=== PATIENT | female | born 1940 | race Caucasian/White ===

== ENCOUNTER → 2017-04-24 | Outpatient (CLI) | payer MEDICARE ==
--- NOTE | 2017-04-25 18:21 | Diagnostic Imaging Report ---
Bilateral screening mammogram 2D views with tomosynthesis. The current study was also evaluated with a Computer Aided Detection (CAD) system. INDICATION: Screening. No current complaints stated on the questionnaire. COMPARISON: None. FINDINGS: The breasts are composed of scattered fibroglandular densities. There are occasional benign-appearing calcifications. No mass, architectural distortion, or suspicious cluster of calcifications seen. IMPRESSION: No mammographic evidence of malignancy. ACR BI-RADS Category 2: Benign findings. Result letter will be mailed to the patient. Note: At least 10% of breast cancer is not imaged by mammography. Dictated by: Dictated on workstation # [id number]
== END ==
LOC: RAD 10:28
PROVIDERS: ATTEND Family Medicine
DX: Z12.31 Encounter for screening mammogram for malignant neoplasm of breast (principal)
CPT/HCPCS: 77067

== ENCOUNTER 2019-05-06 00:15 | Emergency (ER) | payer MEDICARE ==
[~2019-05-06] VITALS: Ht 167 cm; Wt 87.0 kg
[2019-05-06] MEDS ORDERED: NS IV 1000 ML 1,000 ML IV ONE (00:28)
[2019-05-06] MEDS ORDERED: NS IV 1000 ML 1,000 ML IV SCH ×2 (00:28→02:30)
[2019-05-06] MEDS ORDERED: ACETAMINOPHEN 500 MG TAB (TYLENOL) PO ONE (00:30)
[2019-05-06] MEDS ORDERED: RT-ALBUTEROL/IPRATROPIUM 3 ML (DUONEB) VIAL INH ONE (00:30)
--- NOTE | 2019-05-06 00:31 | ED General ---
General Chief Complaint: Rect Problems Stated Complaint: VOMITING Source of Information: Patient, EMS Exam Limitations: Other (delirium) History of Present Illness Date Seen by Provider: May 06, 2019 Time Seen by Provider: 00:14 Initial Comments Patient presents by EMS from home with chief complaint of not feeling well, fever, nausea vomiting. She received 4 mg Zofran. EMS said they saw blood in the stool in the toilet. Patient denies any pain. Patient denies shortness of breath but was 86% on room air so they put her on 4 L by nasal cannula which brought her up to 95%. Her son and [id number] arrive shortly after her and said that she was fine earlier in the day but in the afternoon she started to sick. She has a history of hypothyroidism, hyperlipidemia, hypertension on triamterene and uses metformin for diabetes. Allergies and Home Medications Allergies Coded Allergies: nitroglycerin (Verified Allergy, Unknown, 05/06/19) Patient Home Medication List Home Medication List Reviewed: Yes Review of Systems Review of Systems Constitutional: see HPI (limited review of systems secondary to delirium), chills, fever Past Lwdumfr-Fbdajp-Sgkval Hx Patient Social History Alcohol Use: Denies Use Recreational Drug Use: No Smoking Status: Never a Smoker Recent Foreign Travel: No Contact w/Someone Who Travel: No Physical Exam-Suspected Sepsis Physical Exam Vital Signs Vital Signs - First Documented 05/06/19 00:15 Temp 39.9 Pulse 121 Resp 22 B/P (MAP) 131/71 (91) Pulse Ox 98 O2 Delivery Nasal Cannula O2 Flow Rate 5.00 Capillary Refill : Height, Weight, BMI Height: '" Weight: lbs. oz. kg; BMI Method: General Appearance: Mild Distress, Obese Eyes: Bilateral Eye Normal Inspection, Bilateral Eye PERRL, Bilateral Eye EOMI HEENT: PERRL/EOMI, TMs Normal; No Moist Mucous Membranes Neck: Full Range of Motion, Normal Inspection Respiratory: No Accessory Muscle Use, Decreased Breath Sounds, Respiratory Distress (hypoxia 86% on room air) Cardiovascular: Regular Rate, Rhythm, Tachycardia Gastrointestinal: Normal Bowel Sounds, Non Tender, Soft Rectal: Normal Exam, Normal Rectal Tone; No Black Stool, No Blood Streaked Stool; Heme Positive Stool, Hemorrhoids; No Mass, No Tenderness Extremity: Normal Capillary Refill, Normal Inspection, No Pedal Edema Neurologic/Psychiatric: Alert, No Motor/Sensory Deficits, Normal 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, 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, Other (oriented to person and place but not time or situation) Skin: normal color, warm/dry Focused Exam Sepsis Stage: Severe Sepsis Possible Source: Genitouriary Lactate Level 05/06/19 00:20: Lactic Acid Level 5.45*H 05/06/19 02:21: Time of Focused Exam: 02:44 Respiratory: Lungs Clear, Normal Breath Sounds, No Accessory Muscle Use, Respiratory Distress (mild; 4 lpm NC 96%) Cardiovascular: Regular Rate, Rhythm, Tachycardia (102) Capillary Refill: Less Than 3 Seconds Peripheral Pulses: 2+ Radial Pulses (R), 2+ Radial Pulses (L) Skin: normal color, warm/dry Lactic Acid Level Laboratory Tests Test 05/06/19 00:20 05/06/19 02:21 Lactic Acid Level 5.45 MMOL/L (0.50-2.00) *H Within 3hrs of presentation: Admin fluids, Admin 30ml/kg IBW due to BMI>30, Admin ABX, Blood cultures prior to ABX's, Focus exam, Lactate level Progress/Results/Core Measures Suspected Sepsis SIRS Temperature: Pulse: Respiratory Rate: Laboratory Tests 05/06/19 00:20: White Blood Count 2.4L Blood Pressure / Mean: 05/06/19 00:20: Lactic Acid Level 5.45*H 05/06/19 02:21: Laboratory Tests 05/06/19 00:20: Creatinine 1.35H, INR Comment 1.0, Platelet Count 153, Total Bilirubin 0.7 Results/Orders Lab Results Laboratory Tests Test 05/06/19 00:20 05/06/19 00:33 05/06/19 00:51 05/06/19 02:21 Range/Units White Blood Count 2.4 L 4.3-11.0 10^3/uL Red Blood Count 4.91 4.35-5.85 10^6/uL Hemoglobin 14.7 11.5-16.0 G/DL Hematocrit 45 35-52 % Mean Corpuscular Volume 91 80-99 FL Mean Corpuscular Hemoglobin 30 25-34 PG Mean Corpuscular Hemoglobin Concent 33 32-36 G/DL Red Cell Distribution Width 13.7 10.0-14.5 % Platelet Count 153 130-400 10^3/uL Mean Platelet Volume 11.3 H 7.4-10.4 FL Neutrophils (%) (Auto) 82 H 42-75 % Lymphocytes (%) (Auto) 15 12-44 % Monocytes (%) (Auto) 2 0-12 % Eosinophils (%) (Auto) 0 0-10 % Basophils (%) (Auto) 0 0-10 % Neutrophils # (Auto) 2.0 1.8-7.8 X 10^3 Lymphocytes # (Auto) 0.4 L 1.0-4.0 X 10^3 Monocytes # (Auto) 0.0 0.0-1.0 X 10^3 Eosinophils # (Auto) 0.0 0.0-0.3 10^3/uL Basophils # (Auto) 0.0 0.0-0.1 10^3/uL Prothrombin Time 14.0 12.2-14.7 SEC INR Comment 1.0 0.8-1.4 Activated Partial Thromboplast Time 30 24-35 SEC Sodium Level 141 135-145 MMOL/L Potassium Level 5.6 H 3.6-5.0 MMOL/L Chloride Level 107 98-107 MMOL/L Carbon Dioxide Level 20 L 21-32 MMOL/L Anion Gap 14 5-14 MMOL/L Blood Urea Nitrogen 32 H 7-18 MG/DL Creatinine 1.35 H 0.60-1.30 MG/DL Estimat Glomerular Filtration Rate 38 BUN/Creatinine Ratio 24 Glucose Level 132 H 70-105 MG/DL Lactic Acid Level 5.45 *H 0.50-2.00 MMOL/L Calcium Level 9.5 8.5-10.1 MG/DL Corrected Calcium 9.3 8.5-10.1 MG/DL Total Bilirubin 0.7 0.1-1.0 MG/DL Aspartate Amino Transf (AST/SGOT) 67 H 5-34 U/L Alanine Aminotransferase (ALT/SGPT) 36 0-55 U/L Alkaline Phosphatase 101 40-136 U/L Troponin I 0.162 H <0.028 NG/ML Total Protein 8.0 6.4-8.2 GM/DL Albumin 4.2 3.2-4.5 GM/DL Urine Color YELLOW Urine Clarity SLIGHTLY CLOUDY Urine pH 6 5-9 Urine Specific [place] 1.010 L 1.016-1.022 Urine Protein 3+ H NEGATIVE Urine Glucose (UA) NEGATIVE NEGATIVE Urine Ketones NEGATIVE NEGATIVE Urine Nitrite NEGATIVE NEGATIVE Urine Bilirubin NEGATIVE NEGATIVE Urine Urobilinogen NORMAL NORMAL MG/DL Urine Leukocyte Esterase 1+ H NEGATIVE Urine RBC (Auto) 5+ H NEGATIVE Urine RBC TNTC H /HPF Urine WBC 25-50 H /HPF Urine Squamous Epithelial Cells 0-2 /HPF Urine Crystals PRESENT H /LPF Urine Amorphous Sediment MOD KAM URATES H /LPF Urine Bacteria MODERATE H /HPF Urine Casts NONE /LPF Urine Mucus NEGATIVE /LPF Urine Culture Indicated CULTURE PENDING Blood Gas Puncture Site LEFT RADIAL Blood Gas Patient Temperature 39.1 Arterial Blood pH 7.36 L 7.37-7.43 Arterial Blood Partial Pressure CO2 39 35-45 MMHG Arterial Blood Partial Pressure O2 134 H 79-93 MMHG Arterial Blood HCO3 21 L 23-27 MMOL/L Arterial Blood Total CO2 22.1 21.0-31.0 MMOL/L Arterial Blood Oxygen Saturation 99 94-100 % Arterial Blood Base Excess -3.1 L -2.5-2.5 MMOL/L Swapnil Test POSITIVE Blood Gas Ventilator Setting NO Blood Gas Inspired Oxygen 5 Micro Results Microbiology 05/06/19 Influenza Types A,B Antigen ([facility]ARLEEN) - Final, Complete My Orders Orders - SHAY GASTON Cbc With Automated Diff (05/06/19) Comprehensive Metabolic Panel (05/06/19) Blood Culture (05/06/19) Sputum Culture (05/06/19) Urinalysis (05/06/19) Urine Culture (05/06/19) Protime With Inr (05/06/19) Partial Thromboplastin Time (05/06/19) Chest 1 View, Ap/Pa Only (05/06/19) Ed Iv/Invasive Line Start (05/06/19) Ed Iv/Invasive Line Start (05/06/19) Vital Signs Adult Sepsis Patie Q15M (05/06/1923) O2 (05/06/19:23) Remove Rings In Anticipation O (05/06/19) Lactic Acid Analyzer (05/06/19) Influenza A And B Antigens (05/06/19) Ed Iv/Invasive Line Start (05/06/1923) Acetaminophen Tablet (Tylenol Tablet) (05/06/19 00:30) Ed Iv/Invasive Line Start (05/06/19 00:28) Ns Iv 1000 Ml (Sodium Chloride 0.9%) (05/06/19 00:28) Ns Iv 1000 Ml (Sodium Chloride 0.9%) (05/06/19 00:28) Albuterol/Ipra Inhalation Soln (Duoneb I (05/06/19 00:30) Svn Small Volume Nebulizer (05/06/19 00:28) Ekg Tracing (05/06/19 00:55) Continuous Ekg Monitoring (05/06/19 00:55) Troponin I (05/06/19 00:55) Catheter(Urinary) Insert & Ass 03,15 (05/06/19 00:58) Occult Blood Stool (05/06/19 00:58) Arterial Blood Gas (05/06/19 00:59) Ondansetron Injection (Zofran Injectio (05/06/19 01:04) Ct Abd/Pelvis Wo(Kidney Stone) (05/06/19 01:09) Arterial Blood Draw (05/06/19 ) Fentanyl Injection (Sublimaze Injection (05/06/19 01:15) Lorazepam Injection (Ativan Injection) (05/06/19 01:15) Ibuprofen Tablet (Motrin Tablet) (05/06/19 02:15) Ns Iv 1000 Ml (Sodium Chloride 0.9%) (05/06/19 02:30) Medications Given in ED Current Medications Medications Dose Ordered Sig/Margarita Route Start Time Stop Time Status Last Admin Dose Admin Acetaminophen 1,000 mg ONCE ONCE PO 05/06/19 00:30 05/06/19 00:31 DC 05/06/19 00:39 1,000 MG Albuterol/ Ipratropium 3 ml ONCE ONCE INH 05/06/19 00:30 05/06/19 00:31 DC 05/06/19 01:00 3 ML Fentanyl Citrate 50 mcg ONCE ONCE IVP 05/06/19 01:15 05/06/19 01:16 DC 05/06/19 01:22 50 MCG Lorazepam 0.25 mg ONCE ONCE IVP 05/06/19 01:15 05/06/19 01:16 DC 05/06/19 01:24 0.25 MG Ondansetron HCl 4 mg STK-MED ONCE .ROUTE 05/06/19 01:04 05/06/19 01:05 DC 05/06/19 01:10 4 MG Sodium Chloride 1,000 ml @ 0 mls/hr Q0M ONCE IV 05/06/19 00:28 05/06/19 00:31 DC 05/06/19 00:44 1,000 MLS/HR Vital Signs/I&O 05/06/19 05/06/19 05/06/19 05/06/19 00:15 00:15 00:39 01:01 Temp 39.9 39.5 Pulse 121 Resp 22 B/P (MAP) 131/71 (91) Pulse Ox 98 98 94 O2 Delivery Nasal Cannula Room Air Nasal Cannula O2 Flow Rate 5.00 5.00 Capillary Refill : Progress Note : Time: 01:24 Progress Note Pyelonephritis with no history of kidney stones but regular CT just to rule out. Fentanyl 50 g and Ativan 0.25 mg IV for comfort. Severe sepsis with acute kidney injury. Fecal occult blood test is positive We are on house wide diversion and the patient will need a level of care we cannot provide. Family would prefer to go to [place] if possible. Echocardiogram [address] Cabrera: EF 60% normal ventricular size and systolic function. Aortic valve sclerosis without stenosis. Mild mitral regurgitation and mild tricuspid regurgitation. Pulmonary artery pressure 35 mm mercury. ECG Initial ECG Impression Date: May 06, 2019 Initial ECG Impression Time: 00:57 Initial ECG Rate: 109 Initial ECG Rhythm: S.Tach Initial ECG Intervals: Normal Initial ECG Impression: Normal, Nonspecific Changes Comment Sinus tachycardia without clinically evident ST elevation or depression. Low voltage QRSs. Diagnostic Imaging Diagonstic Imaging: Xray Plain Films/CT/US/NM/MRI: chest (1v) Comments Body habitus makes is a difficult study. No acute infiltrates seen. Reviewed: Reviewed by Me Diagonstic Imaging: CT (kidney stone study without IV contrast) Plain Films/CT/US/NM/MRI: abdomen, pelvis Comments Bilateral hydroureteronephrosis with mid left ureter 3-4 mm calculi. Rob bulb in the bladder. Left hydronephrosis with 4 mm mid ureteral stone. Nonobstructing nephrolithiasis bilaterally. Diverticulosis. No definite diverticulitis. Reviewed: Reviewed [place] Study, Reviewed by Me Departure Impression Primary Impression: Pyelonephritis Additional Impressions: Severe sepsis Left ureteral calculus Disposition: 02 XFER SHT-TRM HOSP Condition: Stable Transfer Time Spoke to Accepting Phy: 01:40 Transfer Progress Notes Sarai Albertoman [place], [place] accepts the patient for admission. Transfer Facility: [place], [place] Method of Transfer: EMS Departure-Patient Inst. Referrals: CHIARA HARDWICK MD (PCP/Family) Primary Care Physician SHAY GASTON May 06, 2019 00:31
[2019-05-06 00:39] LABS: BASOPHILS % (AUTO) 0 % (0-10); EOSINOPHILS % (AUTO) 0 % (0-10); HEMATOCRIT 45 % (35-52); HEMOGLOBIN 14.7 G/DL (11.5-16.0); LYMPHOCYTES # (AUTO) 0.4 X 10^3 (1.0-4.0); LYMPHOCYTES % (AUTO) 15 % (12-44); MEAN CORPUSCULAR HEMOGLOBIN 30 PG (25-34); MEAN CORPUSCULAR HGB CONC 33 G/DL (32-36); MEAN CORPUSCULAR VOLUME 91 FL (80-99); MEAN PLATELET VOLUME 11.3 FL (7.4-10.4); MONOCYTES % (AUTO) 2 % (0-12); NEUTROPHILS % (AUTO) 82 % (42-75); PLATELET COUNT 153 10^3/uL (130-400); RED CELL DISTRIBUTION WIDTH 13.7 % (10.0-14.5); WHITE BLOOD COUNT 2.4 10^3/uL (4.3-11.0)
[2019-05-06 00:48] LABS: BILIRUBIN,URINE NEGATIVE (NEGATIVE); CLARITY,URINE SLIGHTLY CLOUDY; COLOR,URINE YELLOW; GLUCOSE, URINE (UA) NEGATIVE (NEGATIVE); KETONES,URINE NEGATIVE (NEGATIVE); LEUKOCYTE ESTERASE ,URINE 1+ (NEGATIVE); NITRITE,URINE NEGATIVE (NEGATIVE); PH,URINE 6 (5-9); PROTEIN,URINE 3+ (NEGATIVE); UROBILINOGEN,URINE NORMAL (NORMAL)
[2019-05-06 00:56] LABS: RBC,URINE TNTC /HPF; WBC,URINE 25-50 /HPF
[2019-05-06 00:57] LABS: AMORPHOUS SEDIMENT,UR MOD AMOR URATES /LPF; BACTERIA,URINE MODERATE /HPF; SQUAMOUS EPITHELIAL CELL,UR 0-2 /HPF
[2019-05-06 00:58] LABS: ALBUMIN 4.2 GM/DL (3.2-4.5); BILIRUBIN,TOTAL 0.7 MG/DL (0.1-1.0); CALCIUM 9.5 MG/DL (8.5-10.1); CREATININE SERUM 1.35 MG/DL (0.60-1.30); POTASSIUM 5.6 MMOL/L (3.6-5.0)
[2019-05-06] MEDS ORDERED: ONDANSETRON 4 MG/2 ML (SDV) Z0FRAN ONE (01:04)
[2019-05-06 01:06] LABS: ABG BASE EXCESS -3.1 MMOL/L (-2.5-2.5); ABG OXYGEN SATURATION 99 % (94-100); ABG PCO2 39 MMHG (35-45); ABG PH 7.36 (7.37-7.43); ABG PO2 134 MMHG (79-93); ABG TCO2 22.1 MMOL/L (21.0-31.0)
[2019-05-06 01:07] LABS: ALLENS TEST POSITIVE; INSPIRED O2 5; PATIENT TEMP 39.1; VENTILATOR NO
[2019-05-06] MEDS ORDERED: LORazepam INJ 2 MG/ML (ATIVAN) VIAL IVP ONE (01:15)
[2019-05-06] MEDS ORDERED: fentaNYL INJECTION 100 MCG/2 ML AMP IVP ONE (01:15)
[2019-05-06] MEDS ORDERED: IBUPROFEN 800 MG (MOTRIN) TAB PO ONE (02:15)
[2019-05-06 03:30] VITALS: BP 131/71
--- NOTE | 2019-05-06 07:47 | Diagnostic Imaging Report ---
PROCEDURE: CT urinary tract, rule out kidney stone. TECHNIQUE: Multiple contiguous axial images were obtained through the abdomen and pelvis without the use of intravenous contrast. Auto Exposure Controls were utilized during the CT exam to meet ALARA standards for radiation dose reduction. INDICATION: Vomiting and rectal problems. CORRELATION STUDY: None FINDINGS: Mild interstitial opacities at the lung bases. No definitive focal consolidating infiltrate. Heart size enlarged. Small hiatal hernia. Unenhanced liver, spleen, pancreas, adrenal glands and likely contracted gallbladder appearing unremarkable. Moderate aortoiliac wall calcification, non-aneurysmal. Kidneys demonstrate left perinephric stranding and mild to moderate left hydronephrosis. Appears to be associated with an approximately 4 mm mid ureteral stone. Additional 1 or 2 mm nonobstructing stone left kidney present. Right kidney demonstrates mild perinephric stranding and contains 1 or 2 nonobstructing small stones inferior pole. No right ureteral stone. ADAMS catheter decompresses the urinary bladder with small amount of gas in the bladder. Gastrointestinal tract demonstrates no obstruction. A few colonic diverticula are present. Normal appendix. No abdominal ascites or free air. Uterus appearing absent. IMPRESSION: 1. Left-sided hydroureteronephrosis owing to an approximately 4 mm mid ureteral stone. Additional nonobstructing renal calculi are present. 2. Colonic diverticulosis without evidence for acute diverticulitis. A preliminary report was provided by [facility]. Dictated by: Dictated on workstation # [id number]
--- NOTE | 2019-05-06 07:48 | Diagnostic Imaging Report ---
INDICATION: Vomiting, rectal problems. TECHNIQUE: Single view chest 1:16 AM. CORRELATION STUDY: None FINDINGS: Heart size is borderline enlarged with pulmonary vasculature appearing to be borderline. Mild prominent interstitial markings noted. No focal infiltrate. IMPRESSION: 1. Heart size and vasculature. Likely chronic changes of the lung parenchyma. Dictated by: Dictated on workstation # [id number]
== END 2019-05-06 03:30 | disposition short-term general hospital (02) ==
LOC: EDUNIT# 00:15 → ER 00:16
DX: A41.9 Sepsis, unspecified organism (principal); R65.20 Severe sepsis without septic shock; N16 Renal tubulo-interstitial disorders in diseases classified elsewhere; N13.2 Hydronephrosis with renal and ureteral calculous obstruction; I10 Essential (primary) hypertension; E11.9 Type 2 diabetes mellitus without complications; E78.5 Hyperlipidemia, unspecified; E03.9 Hypothyroidism, unspecified; Z79.84 Long term (current) use of oral hypoglycemic drugs; Z88.8 Allergy status to other drugs, medicaments and biological substances
CPT/HCPCS: 36415; 36600; 71045; 74176; 80053; 81000; 82805; 83605; 84484; 85025; 85610; 85730; 87040; 87077; 87088; 87186; 87804; 93005; 94640

== ENCOUNTER 2020-01-09 11:10 | Outpatient (CLI) | payer MEDICARE, OTHER ==
[2020-01-09] MEDS ORDERED: NS IV 1000 ML 1,000 ML IV SCH (11:30)
[2020-01-09] MEDS ORDERED: ONDANSETRON 4 MG/2 ML (SDV) Z0FRAN IVP ONE (11:30)
[2020-01-09 11:42] LABS: HEMOGLOBIN 14.7 G/DL (11.5-16.0); MEAN PLATELET VOLUME 10.6 FL (7.4-10.4); RED CELL DISTRIBUTION WIDTH 13.3 % (10.0-14.5); WHITE BLOOD COUNT 7.2 10^3/uL (4.3-11.0)
[2020-01-09] MEDS ORDERED: ONDANSETRON 4 MG/2 ML (SDV) Z0FRAN IVP PRN (11:45)
[2020-01-09 12:02] LABS: ALANINE AMINOTRANSFERASE 22 U/L (0-55); ALBUMIN 4.5 GM/DL (3.2-4.5); ALKALINE PHOSPHATASE 79 U/L (40-136); BILIRUBIN,TOTAL 0.5 MG/DL (0.1-1.0); BUN/CREATININE RATIO 24; CALCIUM 9.5 MG/DL (8.5-10.1); CARBON DIOXIDE 29 MMOL/L (21-32); CHLORIDE 105 MMOL/L (98-107); CREATININE SERUM 0.75 MG/DL (0.60-1.30); GFR ESTIMATED > 60; GLUCOSE 147 MG/DL (70-105); POTASSIUM 3.9 MMOL/L (3.6-5.0); SODIUM 142 MMOL/L (135-145); TOTAL PROTEIN 7.8 GM/DL (6.4-8.2)
[2020-01-09 12:46] LABS: BILIRUBIN,URINE NEGATIVE (NEGATIVE); CLARITY,URINE CLEAR; COLOR,URINE YELLOW; GLUCOSE, URINE (UA) NEGATIVE (NEGATIVE); KETONES,URINE NEGATIVE (NEGATIVE); LEUKOCYTE ESTERASE ,URINE NEGATIVE (NEGATIVE); NITRITE,URINE NEGATIVE (NEGATIVE); PH,URINE 7.5 (5-9); PROTEIN,URINE NEGATIVE (NEGATIVE)
[2020-01-09 12:50] VITALS: BP 145/73
[2020-01-09 13:00] LABS: BACTERIA,URINE NEGATIVE /HPF; SQUAMOUS EPITHELIAL CELL,UR 0-2 /HPF
== END 2020-01-09 12:50 | disposition home or self-care (01) ==
LOC: SDC 11:10
PROVIDERS: ATTEND Nurse Practitioner Family
DX: R42 Dizziness and giddiness (principal); R11.0 Nausea
CPT/HCPCS: 36415; 80053; 81000; 85027; 96360

== ENCOUNTER → 2020-04-15 | Outpatient (CLI) | payer MEDICARE, OTHER ==
[~2020-04-15] MED LIST: CATHETER FLUSH 10 ML SYR IV PRN; HOLD METFORMIN - RECEIVED CONTRAST 20 ML VIAL IV SCH; IOHEXOL 350 MG/ML 100 ML (OMNIPAQUE 350) VIAL IV ONE; NS 100 ML (IVPB) BAG IV ONE
--- NOTE | 2020-04-15 16:43 | Diagnostic Imaging Report ---
PROCEDURE: CT abdomen and pelvis with and without contrast. TECHNIQUE: Precontrast acquisitions were acquired through the abdomen and pelvis. Multiple contiguous axial images were obtained through the abdomen and pelvis after the administration of intravenous contrast. Auto Exposure Controls were utilized during the CT exam to meet ALARA standards for radiation dose reduction. INDICATION: Hydronephrosis and ureteral strictures. Correlation is made with prior CT from 05/06/2019. FINDINGS: The lung bases are clear. No discrete liver mass is detected. The gallbladder is unremarkable. No biliary ductal dilatation is seen. The pancreas and spleen are unremarkable. No adrenal mass is detected. There is a tiny nonobstructing calculus in the lower pole right kidney. There is also a 5 mm nonobstructing calculus in the lower pole left kidney. Previously seen noted left-sided ureteral calculus and left-sided hydroureteronephrosis is no longer present. Delayed images demonstrate normal excretion of contrast into both renal collecting systems. Both ureters appear to be normal in course and caliber. No filling defects within the urinary bladder are identified. The aorta is calcified but nonaneurysmal. No central retroperitoneal or mesenteric lymphadenopathy is seen. There is a small fat-containing umbilical hernia noted. The small and large bowel loops are normal in caliber. There is no obstruction. There is diverticulosis of the sigmoid and descending colon but no evidence of acute diverticulitis. No free fluid or fluid collection is identified. IMPRESSION: 1. Resolution of previously noted left ureteral calculus and left-sided hydroureteronephrosis when compared with prior CT from 05/06/2019. There are nonobstructing calculi in both kidneys, as described. No ureteral calculi or hydroureter is seen on today's study. 2. Uncomplicated colonic diverticulosis. 3. No acute feature is identified. Dictated by: Dictated on workstation # [id number]
== END ==
LOC: RAD 13:45
PROVIDERS: ATTEND Urology
DX: N20.0 Calculus of kidney (principal); K57.30 Diverticulosis of large intestine without perforation or abscess without bleeding
CPT/HCPCS: 74178

== ENCOUNTER → 2020-04-28 | Outpatient (CLI) | payer MEDICARE, OTHER ==
--- NOTE | 2020-04-28 10:38 | Diagnostic Imaging Report ---
INDICATION: Renal calculus, followup. TIME OF EXAM: 9:34 AM. COMPARISON: CT study from 04/15/2020. FINDINGS: Questionable vague calcific densities overlie the right kidney. The left kidney is obscured by bowel contents. The known left lower pole renal calculus is not well seen on this study. No definite calculi along the course of the ureters is seen. Pelvic calcifications likely represent phleboliths. IMPRESSION: Probable right renal calculi. No definite ureteral calculi are detected. Dictated by: Dictated on workstation # [id number]
== END ==
LOC: RAD 08:47
PROVIDERS: ATTEND Urology
DX: N20.0 Calculus of kidney (principal)
CPT/HCPCS: 74018

== ENCOUNTER → 2020-11-30 | Outpatient (CLI) | payer MEDICARE, OTHER ==
--- NOTE | 2020-11-30 16:43 | Diagnostic Imaging Report ---
INDICATION: 80-year-old asymptomatic postmenopausal female. COMPARISON: 06/05/2001 FINDINGS: AP Spine L1-L4: [BMD (g/cm2): 1.363] [T-Score: 1.4] [Z-Score: 2.4] [BMD Previous: 1.389] [BMD % Change: -1.9] LT Hip Neck: [BMD (g/cm2): 0.943] [T-Score: -0.7] [Z-Score: 1.0] LT Hip Total: [BMD (g/cm2):1.091] [T-Score:0.7] [Z-Score: 2.1] [BMD Previous: 1.091] [BMD % Change: 0.0] RT Hip Neck: [BMD (g/cm2):1.014] [T-Score:-0.2] [Z-Score:1.5] RT Hip Total: [BMD (g/cm2):1.142] [T-score:1.1] [Z-Score:2.5] [BMD Previous:1.090] [BMD % Change:4.8] *Indicates significant change from prior examination based on 95% confidence level. World Health Organization criteria for BMD interpretation classify patients as Normal (T-score at or above -1.0), Osteopenic (T-score between -1.0 and -2.5) or Osteoporotic (T-score at or below -2.5). LIMITATIONS AND MODIFICATION: None. FRACTURE RISK (FRAX SCORE): The ten year probability of (%): Major Osteoporotic Fracture: [NA] Hip Fracture: [NA] IMPRESSION: 1. Normal bone mineral density. 2. No significant change in bone mineral density since prior examination. 3. See below National Osteoporosis Foundation guidelines on when to potentially initiate pharmacologic therapy. Based on the National Osteoporosis Foundation Guidelines, pharmacologic treatment should be initiated in any of the following, unless clinical conditions suggest otherwise: * Any patient with prior fragility fracture of the hip or vertebrae. A spine fracture indicates 5X risk for subsequent spine fracture and 2X risk for subsequent hip fracture. * Osteoporosis (T-score <-2.5). * Postmenopausal women and men age 50 and older with low bone mass/osteopenia (T-score between -1.0 and -2.5) by DXA and 10-year major osteoporotic fracture greater than 20% or a 10-year probability of hip fracture greater than 3%. These fracture risks are supplied above in the FRAX score, if applicable. * Clinician judgement and/or patient preferences may indicate treatment for people with 10-year fracture probabilities above or below these levels. Dictated by: Dictated on workstation # [id number]
--- NOTE | 2020-11-30 17:23 | Diagnostic Imaging Report ---
INDICATION: Routine screening. COMPARISON is made with prior mammograms 04/24/2017 and 01/27/2010. 2-D and 3-D bilateral screening mammography was performed with CAD. Scattered fibroglandular densities are identified bilaterally. Benign parenchymal and vascular calcifications are noted bilaterally. There are small benign appearing nodules. No spiculated mass or malignant appearing microcalcifications are seen. Axillae are unremarkable. IMPRESSION: BI-RADS Category 2. No mammographic features suspicious for malignancy are identified. Dictated by: Dictated on workstation # [id number]
== END ==
LOC: RAD 13:30
PROVIDERS: ATTEND Family Medicine
DX: Z12.31 Encounter for screening mammogram for malignant neoplasm of breast (principal); Z78.0 Asymptomatic menopausal state
CPT/HCPCS: 77063; 77067; 77080

== ENCOUNTER → 2021-05-03 | Outpatient (CLI) | payer MEDICARE, OTHER ==
--- NOTE | 2021-05-03 09:39 | Diagnostic Imaging Report ---
INDICATION: Renal calcification N20.0. TECHNIQUE: Single supine view of the abdomen at 9:24 AM. CORRELATION STUDY: 04/28/2020. FINDINGS: The bilateral renal silhouettes appear somewhat small. There is asymmetric calcification of approximately 1 cm superimposed over the left renal silhouette. There are small calcifications in the bilateral hemipelves, likely phleboliths and appearing generally unchanged. There is mild to moderate stool through the colon. No large fecal impaction. Mild enthesopathy of the bilateral iliac crests. There is mild to moderately advanced degenerative change of both hips. Multilevel disc space narrowing through the visualized lumbar spine. IMPRESSION: New calcification projecting over the inferior pole of the left kidney. This may be reflective of a renal stone but the possibility of overlying gastrointestinal contents is excluded. Dictated by: Dictated on workstation # [id number]
== END ==
LOC: RAD 08:58
PROVIDERS: ATTEND Urology
DX: N20.0 Calculus of kidney (principal)
CPT/HCPCS: 74018

== ENCOUNTER 2022-04-25 16:55 | Emergency (ER) | payer MEDICARE, OTHER ==
[~2022-04-25] VITALS: Ht 165.1 cm; Wt 85.7 kg
--- NOTE | 2022-04-25 17:33 | Diagnostic Imaging Report ---
INDICATION: Chest pain. TIME OF EXAM: 5:27 p.m. Comparison is made with prior chest 05/06/2019. FINDINGS: The heart size is normal. The pulmonary vascularity is unremarkable. The lungs are clear. No infiltrate, effusion or pneumothorax is detected. IMPRESSION: No acute cardiopulmonary process is detected. Dictated by: Dictated on workstation # [id number]
[2022-04-25 17:39] LABS: BASOPHILS # (AUTO) 0.1 10^3/uL (0.0-0.1); BASOPHILS % (AUTO) 1 % (0-10); EOSINOPHILS # (AUTO) 0.1 10^3/uL (0.0-0.3); EOSINOPHILS % (AUTO) 1 % (0-10); HEMATOCRIT 44 % (35-52); HEMOGLOBIN 14.4 g/dL (11.5-16.0); LYMPHOCYTES # (AUTO) 1.8 10^3/uL (1.0-4.0); LYMPHOCYTES % (AUTO) 18 % (12-44); MEAN CORPUSCULAR HEMOGLOBIN 30 pg (25-34); MEAN CORPUSCULAR HGB CONC 33 g/dL (32-36); MEAN CORPUSCULAR VOLUME 91 fL (80-99); MEAN PLATELET VOLUME 11.1 fL (9.0-12.2); MONOCYTES # (AUTO) 1.2 10^3/uL (0.0-1.0); MONOCYTES % (AUTO) 13 % (0-12); NEUTROPHILS # (AUTO) 6.5 10^3/uL (1.8-7.8); NEUTROPHILS % (AUTO) 67 % (42-75); PLATELET COUNT 206 10^3/uL (130-400); WHITE BLOOD COUNT 9.8 10^3/uL (4.3-11.0)
[2022-04-25 18:01] LABS: INR 0.9 (0.8-1.4); PROTHROMBIN TIME PATIENT 12.9 SEC (12.2-14.7)
[2022-04-25 18:09] LABS: ALBUMIN 4.5 GM/DL (3.2-4.5); BILIRUBIN,TOTAL 0.4 MG/DL (0.1-1.0); CREATININE SERUM 1.27 MG/DL (0.60-1.30); MAGNESIUM 2.1 MG/DL (1.6-2.4); TOTAL PROTEIN 7.6 GM/DL (6.4-8.2)
[2022-04-25 18:16] LABS: CREATINE KINASE MB 4.2 NG/ML (<6.6)
--- NOTE | 2022-04-25 18:17 | ED Cardiac General ---
History of Present Illness General Chief Complaint: Cardiac/General Problems Stated Complaint: DIZZINESS,"STRANGE FEELING" IN CHEST Nursing Triage Note: pt ambulatory to room with pt son. pt states she had a "dizzy spell this am that resolved" and has had episodes of "fluttering" and "tightness" in her chest throughout today. pt states she has no pain during triage but does have some tightness in her sternal area she states Source: patient Exam Limitations: no limitations (WILLIAM KEBEDE APRN) History of Present Illness Date Seen by Provider: Apr 25, 2022 Time Seen by Provider: 18:17 Initial Comments This is a 81-year-old female who presented to the ER with complaints of a strange feeling in her chest, dizziness occurred this morning. States that she is no longer dizzy but she continues to have episodes of "fluttering and tightness" in her chest throughout the day. Upon arrival she is not experiencing symptoms, does have a little tightness in her sternal area, but denies "pain". Denies fever, chills, cough, shortness of breath, nausea, vomiting, abdominal pain. (WILLIAM KEBEDE APRN) Allergies and Home Medications Allergies Coded Allergies: nitroglycerin (Verified Allergy, Unknown, 05/06/19) Patient Home Medication List Home Medication List Reviewed: Yes (WILLIAM KEBEDE APRN) Review of Systems Review of Systems Constitutional: see HPI (WILLIAM KEBEDE APRN) Past Kaplybq-Ltlwjj-Cfhyau Hx Patient Social History Tobacco Use?: No Use of E-Cig and/or Vaping dev: No Substance use?: No Alcohol Use?: No (WILLIAM KEBEDE APRN) Immunizations Up To Date Tetanus Booster (TDap): Unknown PED Vaccines UTD: Yes (WILLIAM KEBEDE APRN) Past Medical History Surgeries: Yes Hysterectomy Respiratory: No Cardiac: Yes Hypertension Neurological: No [employer] History: Hysterectomy, Menopausal Genitourinary: No Gastrointestinal: No Musculoskeletal: No Endocrine: Yes Diabetes, Non-Insulin dep HEENT: No Cancer: No Psychosocial: No Integumentary: No Blood Disorders: No Adverse Reaction/Blood Tranf: No (WILLIAM KEBEDE APRN) Physical Exam Vital Signs Capillary Refill : (WILLIAM KEBEDE APRN) Height, Weight, BMI Height: '" Weight: lbs. oz. kg; 31.00 BMI Method: General Appearance: No Apparent Distress, WD/WN HEENT: PERRL/EOMI, Normal ENT Inspection, Pharynx Normal Neck: Full Range of Motion, Normal Inspection, Non Tender Respiratory: Lungs Clear, Normal Breath Sounds, No Accessory Muscle Use, No Respiratory Distress Cardiovascular: Regular Rate, Rhythm, Normal Peripheral Pulses Gastrointestinal: Normal Bowel Sounds, Non Tender, Soft Extremity: Normal Capillary Refill, Normal Inspection, Normal Range of Motion Neurologic/Psychiatric: Alert, Oriented x3, No Motor/Sensory Deficits, Normal Mood/Affect Skin: Normal Color, Warm/Dry (WILLIAM KEBEDE APRN) Progress/Results/Core Measures Results/Orders Lab Results Laboratory Tests Test 04/25/22 17:15 Range/Units White Blood Count 9.8 4.3-11.0 10^3/uL Red Blood Count 4.84 3.80-5.11 10^6/uL Hemoglobin 14.4 11.5-16.0 g/dL Hematocrit 44 35-52 % Mean Corpuscular Volume 91 80-99 fL Mean Corpuscular Hemoglobin 30 25-34 pg Mean Corpuscular Hemoglobin Concent 33 32-36 g/dL Red Cell Distribution Width 12.9 10.0-14.5 % Platelet Count 206 130-400 10^3/uL Mean Platelet Volume 11.1 9.0-12.2 fL Immature Granulocyte % (Auto) 0 % Neutrophils (%) (Auto) 67 42-75 % Lymphocytes (%) (Auto) 18 12-44 % Monocytes (%) (Auto) 13 H 0-12 % Eosinophils (%) (Auto) 1 0-10 % Basophils (%) (Auto) 1 0-10 % Neutrophils # (Auto) 6.5 1.8-7.8 10^3/uL Lymphocytes # (Auto) 1.8 1.0-4.0 10^3/uL Monocytes # (Auto) 1.2 H 0.0-1.0 10^3/uL Eosinophils # (Auto) 0.1 0.0-0.3 10^3/uL Basophils # (Auto) 0.1 0.0-0.1 10^3/uL Immature Granulocyte # (Auto) 0.0 0.0-0.1 10^3/uL Prothrombin Time 12.9 12.2-14.7 SEC INR Comment 0.9 0.8-1.4 Activated Partial Thromboplast Time 38 H 24-35 SEC D-Dimer 0.51 H 0.00-0.49 UG/ML Sodium Level 143 135-145 MMOL/L Potassium Level 4.0 3.6-5.0 MMOL/L Chloride Level 105 98-107 MMOL/L Carbon Dioxide Level 24 21-32 MMOL/L Anion Gap 14 5-14 MMOL/L Blood Urea Nitrogen 30 H 7-18 MG/DL Creatinine 1.27 0.60-1.30 MG/DL Estimat Glomerular Filtration Rate 42 BUN/Creatinine Ratio 24 Glucose Level 112 H 70-105 MG/DL Calcium Level 10.0 8.5-10.1 MG/DL Corrected Calcium 9.6 8.5-10.1 MG/DL Magnesium Level 2.1 1.6-2.4 MG/DL Total Bilirubin 0.4 0.1-1.0 MG/DL Aspartate Amino Transf (AST/SGOT) 19 5-34 U/L Alanine Aminotransferase (ALT/SGPT) 21 0-55 U/L Alkaline Phosphatase 63 40-136 U/L Total Creatine Kinase 243 H 29-168 U/L Creatine Kinase MB 4.2 <6.6 NG/ML Myoglobin 116.5 H 10.0-92.0 NG/ML Troponin I < 0.028 <0.028 NG/ML B-Type Natriuretic Peptide 30.1 <100.0 PG/ML Total Protein 7.6 6.4-8.2 GM/DL Albumin 4.5 3.2-4.5 GM/DL (FAYE GIL MD) Blood Pressure Mean: 132 Progress Progress Note : Progress Note Patient examined and in no acute distress. Initiated cardiac work-up upon arrival. She denies any needs at this time. We will go ahead and evaluate cardiac enzymes, chest x-ray. Her EKG is negative for acute ischemic changes, unchanged from previous. Her D-dimer is within normal limits of age-adjustment. Labs reviewed no elevation of her troponin, which is reassuring as she has had symptoms throughout the day and is improved. Chest x-ray is negative for acute pathology, her BNP is within normal limits, no physical evidence of overload. Reviewed plan to have her return for placement of alarm security or surveillance monitor so we can further evaluate her symptoms of palpitation. Discharge plan of care reviewed and she is agreeable with plan. (WILLIAM KEBEDE APRN) Initial ECG Impression Date: Apr 25, 2022 Initial ECG Impression Time: 17:06 Initial ECG Rate: 99 Initial ECG Rhythm: Normal Sinus Initial ECG Impression: Nonspecific Changes Initial ECG Comparisson: Unchanged (WILLIAM KEBEDE APRN) Diagnostic Imaging Diagonstic Imaging: Xray Plain Films/CT/US/NM/MRI: chest Comments [facility], [place] NAME: MARY BAHENA [facility] REC#: [id number] PT STATUS: REG ER : 1940 PHYSICIAN: WILLIAM KEBEDE APRN ADMIT DATE: 04/25/22/ER Signed Date of Exam:04/25/22 CHEST 1 VIEW, AP/PA ONLY INDICATION: Chest pain. TIME OF EXAM: 5:27 p.m. Comparison is made with prior chest 05/06/2019. FINDINGS: The heart size is normal. The pulmonary vascularity is unremarkable. The lungs are clear. No infiltrate, effusion or pneumothorax is detected. IMPRESSION: No acute cardiopulmonary process is detected. Dictated by: Dictated on workstation # [id number] Dict: 04/25/228 Trans: 04/25/22 1734 [id number] Interpreted by: BRADLEY CRUZ MD Electronically signed by: BRADLEY CRUZ MD 04/25/22 1734 (WILLIAM KEBEDE APRN) Departure Impression Primary Impression: Dehydration Additional Impressions: Elevated CK Elevated myoglobin level Disposition: 01 HOME, SELF-CARE Condition: Improved Departure-Patient Inst. Decision time for Depature: 19:38 (WILLIAM KEBEDE APRN) Referrals: CHIARA HARDWICK MD (PCP/Family) Primary Care Physician Patient Instructions: Dehydration, Adult ED Add. Discharge Instructions: Plan: 1. Call Dr. Hardwick's office tomorrow to schedule close follow-up, would like to have you repeat your CK and myoglobin levels within the week. 2. If you start having any muscle aches, decreased urine output, dark-colored urine you need to stop your pravastatin and return to ER. 3. The hospital should call you tomorrow to schedule a time for you to return to have your 48-hour cardiac Holter monitor placed. We will have the results faxed to Dr. Hardwick's office. 4. Make sure you continue to drink plenty of fluids to keep your urine pale yellow. 5. Return to the ER for any not All discharge instructions reviewed with patient and/or family. Voiced understanding. ATTENDING PHYSICIAN NOTE: I was physically present as attending physician in the emergency department during the care of this patient, but I was not directly involved in the decision making or delivery of care for this patient. (FAYE GIL MD) WILLIAM KEBEDE APRN Apr 25, 2022 18:17 FAYE GIL MD May 07, 2022 06:50
[2022-04-25] MEDS ORDERED: NS IV 500 ML 500 ML IV ONE (19:15)
[2022-04-25 20:00] VITALS: BP 157/79
== END 2022-04-25 20:00 | disposition home or self-care (01) ==
LOC: EDUNIT# 16:55 → ER 16:58
DX: E86.0 Dehydration (principal); R79.89 Other specified abnormal findings of blood chemistry; R82.1 Myoglobinuria
CPT/HCPCS: 36415; 71045; 80053; 82550; 82553; 83735; 83874; 83880; 84484; 85025; 85379; 85610; 85730; 93005; 93041; 96360

== ENCOUNTER → 2022-04-26 | Outpatient (CLI) | payer MEDICARE, OTHER | LOC: CARD 11:25 | PROVIDERS: ATTEND Nurse Practitioner Family | DX: R00.2 Palpitations (principal) | CPT/HCPCS: 93225; 93226 ==

== ENCOUNTER → 2022-05-08 | Outpatient (CLI) | payer MEDICARE, OTHER ==
--- NOTE | 2022-05-08 16:00 | Diagnostic Imaging Report ---
INDICATION: Routine screening. COMPARISON: 11/30/2020 and 04/24/2017. TECHNIQUE: 2D and 3D bilateral screening mammography was performed with CAD. FINDINGS: Scattered fibroglandular densities are identified bilaterally. Vascular calcifications are again noted bilaterally. Nodular densities in the upper outer right breast appear stable. No new mass or malignant appearing microcalcifications are seen. The axillae are unremarkable. IMPRESSION: No mammographic features suspicious for malignancy are identified. ACR BI-RADS Category 2: Benign findings. Result letter will be mailed to the patient. Note: At least 10% of breast cancer is not imaged by mammography. Dictated by: Dictated on workstation # [id number]
== END ==
LOC: RAD 10:23
PROVIDERS: ATTEND Family Medicine
DX: Z12.31 Encounter for screening mammogram for malignant neoplasm of breast (principal)
CPT/HCPCS: 77063; 77067

== ENCOUNTER → 2022-05-11 | Outpatient (CLI) | payer MEDICARE, OTHER ==
--- NOTE | 2022-05-11 11:07 | Diagnostic Imaging Report ---
INDICATION: Nephrolithiasis KUB at 10:35 AM There is a 7 mm calculus projecting over the inferior pole of the left kidney. There is a 2 mm calculus projecting over the inferior pole of the right kidney. IMPRESSION: Bilateral nephrolithiasis. Dictated by: Dictated on workstation # [id number]
== END ==
LOC: RAD 10:15
PROVIDERS: ATTEND Urology
DX: N20.0 Calculus of kidney (principal)
CPT/HCPCS: 74018

== ENCOUNTER → 2022-05-16 | Outpatient (CLI) | payer MEDICARE, OTHER ==
--- NOTE | 2022-05-16 11:11 | Diagnostic Imaging Report ---
PROCEDURE: CT urinary tract, rule out kidney stone. TECHNIQUE: Multiple contiguous axial images were obtained through the abdomen and pelvis without the use of intravenous contrast. Auto Exposure Controls were utilized during the CT exam to meet ALARA standards for radiation dose reduction. INDICATION: Renal calculi. COMPARISON: Correlation is made with the prior CT from 04/15/2020. FINDINGS: The lung bases are clear. The liver and gallbladder are unremarkable. There is no biliary ductal dilatation. The pancreas and spleen are unremarkable. No adrenal mass is detected. A tiny nonobstructing calculus in the lower pole of the right kidney is noted. A lower pole nonobstructing calculus on the left is again noted measuring approximately 7 mm. No ureteral or bladder calculi are seen. There is no hydronephrosis. The aorta is calcified but nonaneurysmal. There is a small fat-containing umbilical hernia. The bowel loops are of normal caliber. There is diverticulosis of the descending and sigmoid colon but no evidence of acute diverticulitis. There is no free fluid or fluid collection identified. A fat-containing left inguinal hernia is noted. The bony structures are nonacute. IMPRESSION: 1. Bilateral nonobstructing nephrolithiasis. No ureteral calculus or hydronephrosis is detected. 2. Uncomplicated diverticulosis. 3. Fat-containing umbilical and left inguinal hernias. Dictated by: Dictated on workstation # [id number]
--- NOTE | 2022-05-16 13:05 | Diagnostic Imaging Report ---
INDICATION: Bilateral kidney stones. TIME OF EXAM: 9:25 AM COMPARISON: Correlation is made to the prior radiograph from 05/11/2022. FINDINGS: The previously noted calculi overlying the lower poles of both kidneys are again noted and appear unchanged in position. Pelvic calcifications appear unchanged. Bowel gas pattern is unremarkable. IMPRESSION: Bilateral nephrolithiasis, similar to the examination from 5 days earlier. Dictated by: Dictated on workstation # [id number]
== END ==
LOC: RAD 09:08
PROVIDERS: ATTEND Urology
DX: N20.0 Calculus of kidney (principal); K57.30 Diverticulosis of large intestine without perforation or abscess without bleeding; K40.90 Unilateral inguinal hernia, without obstruction or gangrene, not specified as recurrent; K42.9 Umbilical hernia without obstruction or gangrene
CPT/HCPCS: 74018; 74176

== ENCOUNTER → 2022-08-01 | Outpatient (CLI) | payer MEDICARE, OTHER | LOC: CARD 09:29 | PROVIDERS: ATTEND Internal Medicine Cardiovascular Disease | DX: I35.1 Nonrheumatic aortic (valve) insufficiency (principal); I10 Essential (primary) hypertension; I25.10 Atherosclerotic heart disease of native coronary artery without angina pectoris | CPT/HCPCS: 93306 ==

== ENCOUNTER → 2022-08-02 | Outpatient (CLI) | payer MEDICARE, OTHER ==
[~2022-08-02] VITALS: Ht 165 cm; Wt 87.0 kg
[~2022-08-02] MED LIST changes: -CATHETER FLUSH 10 ML SYR IV PRN; +CATHETER FLUSH 10 ML SYR IVP PRN; -HOLD METFORMIN - RECEIVED CONTRAST 20 ML VIAL IV SCH; -IOHEXOL 350 MG/ML 100 ML (OMNIPAQUE 350) VIAL IV ONE; -NS 100 ML (IVPB) BAG IV ONE; +REGADENOSON 0.4 MG/5 ML SYR (LEXISCAN) IV ONE
[2022-08-02 10:09] VITALS: BP 168/83
--- NOTE | 2022-08-02 16:12 | Cardiology Stress Test Report ---
Stress Test Report Date of Procedure/Referring: Date of Procedure: Aug 02, 2022 PCP Chiara Patel MD Admitting Physician Admitting Physician: Attending Physician: Elizabeth Cabrera MD Indications: HTN Baseline Heart Rate: 64 Baseline Blood Pressure: Blood Pressure Systolic: 168 Blood Pressure Diastolic: 83 Baseline Vitals Vital Signs Date Time Temp Pulse Resp B/P (MAP) Pulse Ox O2 Delivery O2 Flow Rate FiO2 08/02/22 10:09 88 168/83 (111) Baseline EKG: Baseline EKG: NSR Summary After explaining the procedure to the patient, she signed a consent and then brought to the stress nuclear laboratory. Patient received 0.4 mg Lexiscan for stress test, ECG, heart rate and blood pressure were monitored continuously. Resting and stress dose of radio tracer were injected, imaging was acquired and reviewed in short axis, horizontal long axis and vertical long axis views. TID: 0.97 SSS: 1 SDS: 1 EF: 86 1. Patient tolerated Lexiscan well 2. No significant ischemia or infarction on SPECT images 3. Normal left ventricular size, ejection fraction 80% Copy Copies To 1: CHIARA PATEL MD, BASHAR J MD Aug 02, 2022 16:12
== END ==
LOC: CARD 07:54
PROVIDERS: ATTEND Internal Medicine Cardiovascular Disease
DX: I10 Essential (primary) hypertension (principal); I25.10 Atherosclerotic heart disease of native coronary artery without angina pectoris
CPT/HCPCS: 78452; 93017; A9502

== ENCOUNTER → 2022-08-30 | Outpatient (CLI) | payer MEDICARE, OTHER ==
--- NOTE | 2022-08-30 15:49 | Diagnostic Imaging Report ---
Indication: Bilateral renal calculi. Time of Exam: 11:02 AM Correlation is made with prior radiograph from 05/16/2022. Calculus overlying the lower pole left kidney appears stable. There is a small calculus overlying the lower pole right kidney which appears similar as well. Calcifications in the pelvis are unchanged and may represent phleboliths. No definite calculi along the expected course of the ureters are seen. The bowel gas pattern is unremarkable. Impression: Bilateral renal calculi, similar in appearance to the exam from 05/16/2022. Dictated by: Dictated on workstation # [id number]
== END ==
LOC: RAD 10:42
PROVIDERS: ATTEND Urology
DX: N20.0 Calculus of kidney (principal)
CPT/HCPCS: 74018

== ENCOUNTER 2022-12-28 10:29 | Outpatient (RCR) | payer MEDICARE, OTHER | END 2023-01-03 | disposition home or self-care (01) | PROVIDERS: ATTEND Family Medicine | DX: M54.2 Cervicalgia (principal); R20.2 Paresthesia of skin; E11.9 Type 2 diabetes mellitus without complications; I10 Essential (primary) hypertension; E03.9 Hypothyroidism, unspecified ==

== ENCOUNTER 2023-02-01 09:14 | Outpatient (RCR) | payer MEDICARE, OTHER | END 2023-02-02 | disposition home or self-care (01) | PROVIDERS: ATTEND Family Medicine | DX: M54.2 Cervicalgia (principal); R20.2 Paresthesia of skin; E11.9 Type 2 diabetes mellitus without complications; I10 Essential (primary) hypertension; E03.9 Hypothyroidism, unspecified ==

== ENCOUNTER → 2023-02-27 | Outpatient (CLI) | payer MEDICARE, OTHER ==
--- NOTE | 2023-02-27 10:40 | Diagnostic Imaging Report ---
INDICATION: Renal stone. TECHNIQUE/COMPARISON: An abdominal film was obtained at 0834 hours and compared to 08/30/2022. FINDINGS: The abdominal bowel gas pattern is unremarkable. There is no overt obstruction or ileus. The stone overlying the left kidney appears unchanged compared to the prior study measuring about 9 mm. There are multiple pelvic phleboliths. There are diffuse degenerative changes in the lumbar spine. IMPRESSION: Unchanged calcification overlying the left renal shadow. Multiple phleboliths in the pelvis. Bowel gas pattern is unremarkable. Dictated by: Dictated on workstation # [id number]
== END ==
LOC: RAD 08:20
PROVIDERS: ATTEND Urology
DX: N20.0 Calculus of kidney (principal); I87.8 Other specified disorders of veins
CPT/HCPCS: 74018

== ENCOUNTER → 2023-03-27 | Outpatient (CLI) | payer MEDICARE, OTHER ==
--- NOTE | 2023-03-27 15:15 | Diagnostic Imaging Report ---
EXAMINATION: Abdomen 1 view HISTORY: Renal stone COMPARISON: 02/27/2023 FINDINGS: There is an unchanged 8 mm calcification projecting over the left kidney. No other calcifications are seen projecting over the kidneys. There are phleboliths in the pelvis. No dilated bowel or free air. Lung bases are clear. IMPRESSION: 1. Unchanged 8 mm calcification projecting over the left kidney. Dictated by: Dictated on workstation # [id number]
== END ==
LOC: RAD 11:09
PROVIDERS: ATTEND Urology
DX: N20.0 Calculus of kidney (principal)
CPT/HCPCS: 74018

== ENCOUNTER 2023-05-27 01:34 | Emergency (ER) | payer MEDICARE, OTHER ==
[~2023-05-27] VITALS: Ht 165.1 cm; Wt 87.1 kg
--- NOTE | 2023-05-27 01:59 | ED Neurological Problem ---
General Stated Complaint: RT ARM NOT WORKING Source: patient History of Present Illness Date Seen by Provider: May 27, 2023 Time Seen by Provider: 01:47 Initial Comments PT ARRIVES VIA POV FROM HOME, WANTS WHEELCHAIR ON ARRIVAL PT C/O RIGHT ARM NOT WORKING SHE WENT TO BED AT 2230 AND WAS FINE SHE WOKE UP AT 0030 TO GO TO THE BATHROOM AND HER RIGHT ARM WOULD NOT WORK--SHE COULD NOT LIFT IT OR MOVE IT. SHE HAD SOME SLIGHT DECREASED SENSATION TO HER RIGHT ARM--SHE STATES IT IS BETTER NOW, AND LASTED "5-10 MINUTES"--NOT QUITE BACK TO NORMAL, STILL FEELS A LITTLE WEAK BUT IS NOW ABLE TO MOVE IT AND NO NUMBNESS/TINGLING SHE HAS NOT HAD ANY PROBLEMS WALKING OR USING HER LEGS, NO NUMBNESS/TINGLING TO HER LEGS NO HEADACHE NO VISION CHANGES NO DIZZINESS NO SYNCOPE NO PALPITATIONS NO CHEST PAIN NO SHORTNESS OF BREATH NO FEVER OR RECENT ILLNESS NO HISTORY OF SIMILAR PT IS RIGHT HANDED PT HAS HTN, HYPERLIPIDEMIA, NON -INSULIN DEPENDENT DIABETES, KIDNEY STONES, CHRONIC LEFT LEG SWELLING, CHRONIC NECK PAIN NO HISTORY OF SMOKING, ALCOHOL OR DRUG USE PT LIVES BY HERSELF INDEPENDENTLY PCP: DR. HARDWICK BOOK SOLICITOR: DR. COLLIER Allergies and Home Medications Allergies Coded Allergies: No Known Drug Allergies (Unverified , 08/02/22) Review of Systems Review of Systems Constitutional: no symptoms reported; No dizziness Eyes: No Symptoms Reported Ears, Nose, Mouth, Throat: no symptoms reported Respiratory: no symptoms reported Cardiovascular: no symptoms reported Gastrointestinal: no symptoms reported Genitourinary: no symptoms reported Musculoskeletal: see HPI Skin: no symptoms reported Psychiatric/Neurological: See HPI Endocrine: No Symptoms Reported, Other (PT CHECKS HER BLOOD SUGAR ONCE EVERY 3 DAYS, SHE LAST CHECKED IT 2 DAYS AGO) Hematologic/Lymphatic: No Symptoms Reported Past Hfnhgxa-Fwrlxz-Arfxxm Hx Patient Social History Tobacco Use?: No Smoking Status: Never a Smoker Smokeless Tobacco Frequency: Never a User Use of E-Cig and/or Vaping Jamal: Never a User Substance use?: No Alcohol Use?: No Immunizations Up To Date Tetanus Booster (TDap): Unknown PED Vaccines UTD: Yes Past Medical History Surgeries: Yes (HYST; KIDNEY STONES REMOVED/BASKET + LITHOTRIPSY) Hysterectomy, Renal Respiratory: No Cardiac: Yes (CHRONIC LEFT LEG SWELLING) Chronic Edema/Swelling, High Cholesterol, Hypertension Neurological: No Reproductive Disorders: Yes Female Reproductive Disorders: 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 COLLIER -EF 55-60% -GRADE 1 DIASTOLIC DYSFUNCTION -MILD MITRAL REGURGITATION 08/02/22--STRESS TEST BY DR. COLLIER -EF 80% -NORMAL LEFT VENTRICULAR FUNCTION -NO ISCHEMIA OR INFARCT Physical Exam Vital Signs Vital Signs - First Documented 05/27/23 01:40 Temp 36.7 Pulse 71 Resp 16 B/P (MAP) 192/102 (132) Pulse Ox 94 O2 Delivery Room Air Capillary Refill : Height, Weight, BMI Height: '" Weight: lbs. oz. kg; 31.95 BMI Method: General Appearance: WD/WN, no apparent distress HEENT: PERRL/EOMI, normal ENT inspection Neck: non-tender, full range of motion, supple, normal inspection Respiratory: normal breath sounds, no respiratory distress, no accessory muscle use Cardiovascular: regular rate, rhythm (WITH FREQUENT ECTOPY--C/W PVC'S AND PAC'S ON MONITOR), no JVD, extra beats Gastrointestinal: non tender, soft Back: normal inspection Extremities: normal range of motion, non-tender, normal capillary refill, other (4+ EDEMA ON LEFT, 1+ EDEMA ON RIGHT--PT STATES IS NORMAL FOR HER. ) Neurologic/Psychiatric: dental specialist II-XII nml as tested, no motor/sensory deficits, alert, normal mood/affect, oriented x 3; No abnormal cerebellar tests Crainal Nerves: normal hearing, normal speech, PERRL Coordination/Gait: normal finger to nose, normal gait Motor/Sensory: no motor deficit, no sensory deficit, no pronator drift Skin: normal color, warm/dry Stroke Onset of Symptoms Date of Onset of Symptoms: May 27, 2023 Onset of Symptoms: No Symptoms onset unknown: Yes NIH Stroke Scale Assessment Select: Initial Level of Consciousness: 0=Alert (0), Level of Consciousness- Questions: 0=Answers both month/age (0), LOC Commands: 0=Performs both tasks (0), Gaze: Normal (0), Visual Suárez: 0=No visual loss (0), Facial Movement (Facial Paresis): 0=Normal symmetrical mnt (0), Motor Function-Arms Right: 0=No drift (0), Motor Function-Arms Left: 0=No drift (0), Motor Function-Legs Right: 0=No drift (0), Motor Function-Legs Left: 0=No drift (0), Limb Ataxia: 0=Absent (0), Sensory: 0=Normal:no loss (0), Best Language: 0=No aphasia (0), Dysarthria: 0=Normal (0), Extinction & Inattention: 0=No abnormality (0), Total: 0 Stroke Thrombolytic Exclusion Age 18 or Over: No Acute intenal hemorrhage: No History of CVA: No Uncontrolled Coagulation Defec: No Intracranial Hemorrhage: No Severe Hypertension: No GI or Bleed: No Subarachnoid Hemorrhage: No Intracranial Neoplasm/Aneurysm: No Oral Anticoagulants: No Surgery or Trauma: No Puncture of Non-Compressible V: No Recent CPR: No Diabetic Hemorrhagic Retinopat: No Organ Biopsy: No Recent Obstetric Delivery: No Glucose: No Significant Hepatic Dysfunctio: No NIH Stoke Scale >22: No Bacterial Endocarditis: No Pericarditis: No Improving Symptoms: Yes Platelets: No TPA Contraindication: No IV - TPa Received IV - TPa Procedure Performed?: No (NIH IS 0, ALL SYMPTOMS RESOLVED ON ARRIVAL TO ER) Progress/Results/Core Measures Results/Orders Lab Results Laboratory Tests Test 05/27/23 02:15 05/27/23 02:45 Range/Units Urine Color PALE YELLOW Urine Clarity CLEAR Urine pH 7.5 5-9 Urine Specific [place] 1.015 L 1.016-1.022 Urine Protein NEGATIVE NEGATIVE Urine Glucose (UA) NEGATIVE NEGATIVE Urine Ketones NEGATIVE NEGATIVE Urine Nitrite NEGATIVE NEGATIVE Urine Bilirubin NEGATIVE NEGATIVE Urine Urobilinogen 0.2 < = 1.0 MG/DL Urine Leukocyte Esterase NEGATIVE NEGATIVE Urine RBC (Auto) TRACE H NEGATIVE Urine RBC RARE /HPF Urine WBC NONE /HPF Urine Squamous Epithelial Cells 0-2 /HPF Urine Crystals PRESENT H /LPF Urine Amorphous Sediment FEW KAM PHOSPHATE H /LPF Urine Bacteria NEGATIVE /HPF Urine Casts NONE /LPF Urine Mucus NEGATIVE /LPF Urine Culture Indicated NO White Blood Count 7.3 4.3-11.0 10^3/uL Red Blood Count 5.07 3.80-5.11 10^6/uL Hemoglobin 15.3 11.5-16.0 g/dL Hematocrit 47 35-52 % Mean Corpuscular Volume 92 80-99 fL Mean Corpuscular Hemoglobin 30 25-34 pg Mean Corpuscular Hemoglobin Concent 33 32-36 g/dL Red Cell Distribution Width 13.1 10.0-14.5 % Platelet Count 173 130-400 10^3/uL Mean Platelet Volume 10.7 9.0-12.2 fL Immature Granulocyte % (Auto) 0 % Neutrophils (%) (Auto) 58 42-75 % Lymphocytes (%) (Auto) 23 12-44 % Monocytes (%) (Auto) 15 H 0-12 % Eosinophils (%) (Auto) 3 0-10 % Basophils (%) (Auto) 1 0-10 % Neutrophils # (Auto) 4.3 1.8-7.8 10^3/uL Lymphocytes # (Auto) 1.7 1.0-4.0 10^3/uL Monocytes # (Auto) 1.1 H 0.0-1.0 10^3/uL Eosinophils # (Auto) 0.2 0.0-0.3 10^3/uL Basophils # (Auto) 0.1 0.0-0.1 10^3/uL Immature Granulocyte # (Auto) 0.0 0.0-0.1 10^3/uL Erythrocyte Sedimentation Rate 12 0-30 MM/HR Prothrombin Time 12.5 12.2-14.7 SEC INR Comment 0.9 0.8-1.4 Activated Partial Thromboplast Time 32 24-35 SEC D-Dimer 0.83 H 0.00-0.49 UG/ML Sodium Level 144 135-145 MMOL/L Potassium Level 4.0 3.6-5.0 MMOL/L Chloride Level 109 H 98-107 MMOL/L Carbon Dioxide Level 23 21-32 MMOL/L Anion Gap 12 5-14 MMOL/L Blood Urea Nitrogen 24 H 7-18 MG/DL Creatinine 0.91 0.60-1.30 MG/DL Estimat Glomerular Filtration Rate 63 BUN/Creatinine Ratio 26 Glucose Level 136 H 70-105 MG/DL Calcium Level 9.7 8.5-10.1 MG/DL Corrected Calcium 9.4 8.5-10.1 MG/DL Magnesium Level 2.3 1.6-2.4 MG/DL Total Bilirubin 0.4 0.1-1.0 MG/DL Aspartate Amino Transf (AST/SGOT) 22 5-34 U/L Alanine Aminotransferase (ALT/SGPT) 21 0-55 U/L Alkaline Phosphatase 59 40-136 U/L Total Creatine Kinase 213 H 29-168 U/L Creatine Kinase MB 3.3 <6.6 NG/ML Myoglobin 74.9 10.0-92.0 NG/ML Troponin I < 0.028 <0.028 NG/ML C-Reactive Protein High Sensitivity 0.18 0.00-0.50 MG/DL B-Type Natriuretic Peptide 63.1 <100.0 PG/ML Total Protein 7.6 6.4-8.2 GM/DL Albumin 4.4 3.2-4.5 GM/DL TSH [place] Testing 1.41 0.35-4.94 UIU/ML My Orders Orders - BALTA HAGER DO Cbc And Automated Diff (05/27/23) Protime With Inr (05/27/23) Partial Thromboplastin Time (05/27/23) Comprehensive Metabolic Panel (05/27/23) Fibrin Degradation Products (05/27/23) Troponin I [place] (05/27/2346) Ua Culture If Indicated (05/27/23) Chest 1 View, Ap/Pa Only (05/27/23) Catheter(Urinary) Insert & Ass 03,15 (05/27/23:46) Ekg Tracing (05/27/23:46) Nothing By Mouth (05/27/23 Breakfast) Accucheck Stat ONCE (05/27/23:46) Ed Iv/Invasive Line Start (05/27/23) Ed Iv/Invasive Line Start (05/27/2346) Vital Signs Stroke Patient Q15M (05/27/23:46) Ct Head Wo-R/O Stroke (05/27/23:46) O2 (05/27/23:46) Monitor-Rhythm Ecg Trace Only (05/27/23:46) Dysphagia Screening Tool Q10MX1 (10/22/23 01:46) Bnp Triny (05/27/23 01:46) Creatine Kinase (05/27/23 01:46) Creatine Kinase Mb (05/27/23 01:46) Hs C Reactive Protein (05/27/23 01:46) Magnesium (05/27/23 01:46) Thyroid Analyzer (05/27/23 01:46) Erythrocyte Sedimentation Rate (05/27/23 01:46) Myoglobin Serum (05/27/23 01:46) Lidocaine 2% (Urojet) (Lidocaine 2% (Uro (05/27/23 02:00) Ct Angio Head/Neck (05/27/23 03:16) Iohexol Injection (Omnipaque 350 Mg/Ml 1 (05/27/23 04:00) Received Contrast (Hold Metformin- Contr (05/27/23 04:00) Sodium Chloride Flush (Catheter Flush Sy (05/27/23 04:00) Ns (Ivpb) 100 Ml (Sodium Chloride 0.9% 1 (05/27/23 04:00) Aspirin Chewable Tablet (Aspirin Chewabl (05/27/23 04:45) Clopidogrel Tablet (Clopidogrel Tablet) (05/27/23 04:45) Medications Given in ED Current Medications Medications Dose Ordered Sig/Margarita Route Start Time Stop Time Status Last Admin Dose Admin Aspirin 324 mg ONCE ONCE PO 05/27/23 04:45 05/27/23 04:47 DC 05/27/23 05:20 324 MG Iohexol 100 ml ONCE ONCE IV 05/27/23 04:00 05/27/23 04:02 DC 05/27/23 03:58 75 ML Sodium Chloride 10 ml NEEDED PRN IV 05/27/23 04:00 05/27/23 03:58 10 ML Sodium Chloride 100 ml ONCE ONCE IV 05/27/23 04:00 05/27/23 04:02 DC 05/27/23 03:58 80 ML Vital Signs/I&O 05/27/23 05/27/23 01:40 01:50 Temp 36.7 Pulse 71 Resp 16 B/P (MAP) 192/102 (132) Pulse Ox 94 O2 Delivery Room Air Room Air Progress Progress Note : Progress Note VITALS ON ARRIVAL: TEMP 36.7=98.0, HR 71, RR 16, BP 192/102, O2 SAT 94% ON ROOM AIR GIVEN: -ASPIRIN LABS: -CBC NORMAL -CMP BUN 12, CR 0.91, GLU 136, OTHERWISE NORMAL -MG NORMAL -TROPONIN NEGATIVE -BNP NORMAL -PT/PTT/INR NORMAL -D-DIMER 0.83 -TSH NORMAL AT 1.41 -SED RATE AND CRP NORMAL -UA CLEAR EKG WITH NSR, FREQUENT ECTOPY--UNCHANGED FROM PREVIOUS CXR UNREMARKABLE, PENDING RADIOLOGIST REVIEW PLAIN HEAD CT IS UNREMARKABLE CT ANGIOGRAM HEAD/NECK WITH AT LEAST 90% OCCLUSION OF LEFT ICA, 40% OCCLUSION OF RIGHT ICA, NORMAL CTA OF BRAIN. 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, BUT PT STATES HER RIGHT ARM STILL FEELS A LITTLE WEAK REVIEWED PRIOR RECORDS, INCLUDING 2 ER VISITS, OUTPATIENT TESTS/PROCEDURES Initial ECG Impression Date: May 27, 2023 Initial ECG Impression Time: 03:01 Initial ECG Rate: 72 Initial ECG Rhythm: Normal Sinus (WITH OCCASIONAL PVC'S) Initial ECG Intervals IN 178 QRS 107 QT/QTC 382/407 Initial ECG Comparisson: Unchanged Comment INTERPRETED BY ME Diagnostic Imaging Comments CXR--NO ACUTE PROCESS, PENDING RADIOLOGIST REVIEW CT HEAD--NO ACUTE PROCESS, PER [facility] RADIOLOGIST VIA PHONE AND FAX AT 0239 CT ANGIOGRAM HEAD/NECK--PER [facility] RADIOLOGIST VIA PHONE AND FAX AT 0414 -NORMAL HEAD CT ANGIOGRAM -LEFT ICA WITH 90% / CRITICAL-SEVERE STENOSIS -R[place] SIMON WITH 40% STENOSIS Reviewed: Reviewed by Me, Discussed w/Radiologist Departure Communication (Admissions) NO NEUROLOGY SERVICES AVAILABLE HERE AT ANY TIME NO CARDIOLOGY SERVICES AVAILABLE HERE THIS WEEKEND NO GROUND EMS TRANSPORT IS AVAILABLE TODAY NO BEDS AVAILABLE AT [place] OR [facility] IN [place] 0419--CALLED [facility]. IMAGES CLOUDED TO THEM. SPOKE WITH DR. MOSER, STROKE NEUROLOGIST. SHE ACCEPTS PT FOR TRANSFER. SHE ADVISES 324 MG ASPIRIN AND 300 PLAVIX. PT WILL LIKELY NEED CAROTID STENT OR ENDARTERECTOMY DUE TO CRITICAL STENOSIS OF LEFT ICA 0443--[facility] CALLED BACK, DR. MOSER HAS ADVISED TO HOLD PLAVIX AND ONLY GIVE ASPIRIN AT THIS TIME. NO OTHER RECOMMENDATIONS. AIR TRANSPORT IS BEING CONTACTED FOR TRANSFER. [facility] WILL BE TRANSFERRING PT 0625--[facility] IS HERE TO TRANSFER PT. Impression Primary Impression: TRANSIENT RIGHT ARM WEAKNESS Additional Impressions: LEFT ICA CRITICAL STENOSIS HTN (hypertension) NIDDM Disposition: 02 XFER SHT-TRM HOSP Condition: Stable Transfer Transfer Reason: Exceeds level of care (NEED FOR NEUROLOGY SERVICES UNAVAILABLE HERE. ) Transfer Facility: Method of Transfer: Air Departure-Patient Inst. Referrals: CHIARA HARDWICK MD (PCP/Family) Primary Care Physician BALTA HAGER DO May 27, 2023 01:59
[2023-05-27] MEDS ORDERED: LIDOCAINE UROJET 2% GEL 10 ML PKG TOP ONE (02:00)
[2023-05-27 02:30] LABS: AMORPHOUS SEDIMENT,UR FEW AMOR PHOSPHATE /LPF; BACTERIA,URINE NEGATIVE /HPF; BILIRUBIN,URINE NEGATIVE (NEGATIVE); CLARITY,URINE CLEAR; COLOR,URINE PALE YELLOW; GLUCOSE, URINE (UA) NEGATIVE (NEGATIVE); KETONES,URINE NEGATIVE (NEGATIVE); LEUKOCYTE ESTERASE ,URINE NEGATIVE (NEGATIVE); NITRITE,URINE NEGATIVE (NEGATIVE); PH,URINE 7.5 (5-9); PROTEIN,URINE NEGATIVE (NEGATIVE); RBC,URINE RARE /HPF; SQUAMOUS EPITHELIAL CELL,UR 0-2 /HPF
[2023-05-27 02:54] LABS: BASOPHILS # (AUTO) 0.1 10^3/uL (0.0-0.1); BASOPHILS % (AUTO) 1 % (0-10); EOSINOPHILS # (AUTO) 0.2 10^3/uL (0.0-0.3); EOSINOPHILS % (AUTO) 3 % (0-10); HEMATOCRIT 47 % (35-52); HEMOGLOBIN 15.3 g/dL (11.5-16.0); LYMPHOCYTES # (AUTO) 1.7 10^3/uL (1.0-4.0); LYMPHOCYTES % (AUTO) 23 % (12-44); MEAN CORPUSCULAR HEMOGLOBIN 30 pg (25-34); MEAN CORPUSCULAR HGB CONC 33 g/dL (32-36); MEAN CORPUSCULAR VOLUME 92 fL (80-99); MEAN PLATELET VOLUME 10.7 fL (9.0-12.2); MONOCYTES # (AUTO) 1.1 10^3/uL (0.0-1.0); MONOCYTES % (AUTO) 15 % (0-12); NEUTROPHILS # (AUTO) 4.3 10^3/uL (1.8-7.8); NEUTROPHILS % (AUTO) 58 % (42-75); PLATELET COUNT 173 10^3/uL (130-400); WHITE BLOOD COUNT 7.3 10^3/uL (4.3-11.0)
[2023-05-27 03:09] LABS: ALBUMIN 4.4 GM/DL (3.2-4.5); CHLORIDE 109 MMOL/L (98-107); SODIUM 144 MMOL/L (135-145)
[2023-05-27 03:10] LABS: CALCIUM 9.7 MG/DL (8.5-10.1)
[2023-05-27 03:11] LABS: GLUCOSE 136 MG/DL (70-105); TOTAL PROTEIN 7.6 GM/DL (6.4-8.2)
[2023-05-27 03:12] LABS: CARBON DIOXIDE 23 MMOL/L (21-32)
[2023-05-27 03:13] LABS: BILIRUBIN,TOTAL 0.4 MG/DL (0.1-1.0)
[2023-05-27 03:15] LABS: ALKALINE PHOSPHATASE 59 U/L (40-136); CREATININE SERUM 0.91 MG/DL (0.60-1.30); ERYTHROCYTE SEDIMENTATION RATE 12 MM/HR (0-30); GFR ESTIMATED 63
[2023-05-27 03:16] LABS: BUN/CREATININE RATIO 26
[2023-05-27 03:18] LABS: ALANINE AMINOTRANSFERASE 21 U/L (0-55); CREATINE KINASE 213 U/L (29-168); MAGNESIUM 2.3 MG/DL (1.6-2.4)
[2023-05-27 03:24] LABS: INR 0.9 (0.8-1.4); PROTHROMBIN TIME PATIENT 12.5 SEC (12.2-14.7)
[2023-05-27 03:25] LABS: CREATINE KINASE MB 3.3 NG/ML (<6.6)
[2023-05-27 03:27] LABS: FIBRIN DEGRADATION PRODUCTS 0.83 UG/ML (0.00-0.49)
[2023-05-27 03:38] LABS: TSH (THYROID ANALYZER) 1.41 UIU/ML (0.35-4.94)
[2023-05-27] MEDS ORDERED: HOLD METFORMIN - RECEIVED CONTRAST 20 ML VIAL IV SCH (04:00)
[2023-05-27] MEDS ORDERED: NS 100 ML (IVPB) BAG IV ONE (04:00)
[2023-05-27] MEDS ORDERED: CATHETER FLUSH 10 ML SYR IV PRN (04:00)
[2023-05-27] MEDS ORDERED: IOHEXOL 350 MG/ML 100 ML (OMNIPAQUE 350) VIAL IV ONE (04:00)
[2023-05-27] MEDS ORDERED: CLOPIDOGREL 300 MG TABLET PO ONE (04:45)
[2023-05-27] MEDS ORDERED: ASPIRIN 81 MG CHEWABLE TABLET PO ONE (04:45)
--- NOTE | 2023-05-27 06:00 | Diagnostic Imaging Report ---
PROCEDURE: CT head wo r/o stroke. TECHNIQUE: Multiple contiguous axial images were obtained through the brain without the use of intravenous contrast. Auto Exposure Controls were utilized during the CT exam to meet ALARA standards for radiation dose reduction. INDICATION: New onset right arm weakness, altered mental status. COMPARISON: None. DISCUSSION: No acute intracranial hemorrhage, mass, midline shift, or hydrocephalus. The ventricles and sulci are normal size and configuration for age. The orbits, mastoid air cells, and calvarium are unremarkable. Small amount of mucosal thickening within the left maxillary sinus, chronic in appearance. No air-fluid level. IMPRESSION: 1. No acute intracranial abnormality identified. 2. Agree with preliminary report. Dictated by: Dictated on workstation # [id number]
--- NOTE | 2023-05-27 06:27 | Diagnostic Imaging Report ---
INDICATION: Altered mental status, follow-up possible CVA. COMPARISON: 04/25/2022. DISCUSSION: Single portable upright view of the chest was obtained. Mild cardiomegaly stable. Mild eventration of the right hemidiaphragm is again noted. No failure. No consolidation, pleural fluid, or pneumothorax. No osseous abnormality. IMPRESSION: 1. No acute cardiopulmonary process. Dictated by: Dictated on workstation # [id number]
--- NOTE | 2023-05-27 06:29 | Diagnostic Imaging Report ---
PROCEDURE: CT angiography of the head and CT angiography of the neck with and without contrast. TECHNIQUE: Contiguous noncontrast images were obtained from the skull base through the vertex. After intravenous contrast administration, helical CT angiography of the neck was performed. Source data was reformatted into 3D MIP projections. Delayed post contrast acquisition was also obtained. Auto Exposure Controls were utilized during the CT exam to meet ALARA standards for radiation dose reduction. INDICATION: Right arm weakness. Stroke. Comparison: CT head performed earlier the same day. FINDINGS: CTA Neck: The visualized portions of the aortic arch demonstrate no evidence of aneurysm or dissection. There is common origin of the carotid arteries, consistent with bovine arch. The brachiocephalic artery is normal in course and caliber. The right and left common carotid origins are unremarkable. The origin of the left subclavian artery is patent. The common carotid arteries and internal carotid arteries demonstrate a tortuous course. There is calcified atherosclerotic plaque in the bilateral carotid bulbs and proximal internal carotid. There is approximately 90% stenosis in the proximal left internal carotid artery based on NASCET criteria. No evidence of dissection in the carotid systems. The external carotid arteries are patent and unremarkable. The vertebral arteries are codominant. The origin of the right vertebral artery is seen and is unremarkable. The origin of the left vertebral artery is seen and is unremarkable. There is no focal stenosis seen within the neck. There is no dissection. The vertebral arteries are well visualized to up to the level of the basilar artery. The osseous structures of the cervical spine are unremarkable. Included views through the lung apices demonstrate no focal consolidation. CTA brain: Atherosclerotic plaque is seen in the jenkins of the bilateral terminal internal carotid arteries without significant stenosis. No stenosis is seen in the bilateral anterior, middle, and posterior cerebral arteries. No evidence of aneurysm the [place]. In the posterior circulation, both of the vertebral arteries demonstrate normal opacification. Both the right and left PICA arteries are identified. The basilar artery is normal in course and caliber. The terminal branch vessels including the superior cerebellar arteries unremarkable. IMPRESSION: 1. No stenosis or aneurysm in the [place]. No large vessel occlusion. 2. Stenosis of 90% in the proximal left internal carotid artery secondary to atherosclerotic plaque. No stenosis is seen in the right carotid system and bilateral vertebral arteries. Agree with overnight report. Dictated by: Dictated on workstation # [id number]
[2023-05-27 06:40] VITALS: BP 156/73
== END 2023-05-27 06:42 | disposition short-term general hospital (02) ==
LOC: EDUNIT# 01:34 → ER 01:37
DX: I65.22 Occlusion and stenosis of left carotid artery (principal); I10 Essential (primary) hypertension; E11.9 Type 2 diabetes mellitus without complications
CPT/HCPCS: 36415; 51702; 70450; 70496; 70498; 71045; 80053; 81000; 82550; 82553; 83735; 83874; 83880; 84443; 84484; 85025; 85379; 85610; 85652; 85730; 86141; 93005; 93041